=== PATIENT | male | born 1970 | race Hispanic/Latino ===

== ENCOUNTER → 2024-10-15 | Emergency (ER) | payer OTHER | END | disposition home or self-care (01) | LOC: ER 16:50 | DX: S03.02XA Dislocation of jaw, left side, initial encounter (principal) | CPT/HCPCS: 70110; 99283 ==

== ENCOUNTER → 2024-10-15 | Day surgery (SDC) | payer OTHER ==
[~2024-10-15] MED LIST: FENTANYL CITRATE/PF 100MCG/2 ML INJ ONE; GLYCOPYRROLATE INJ 0.2 MG/ML VIAL ONE; HYOSCYAMINE SULFATE 0.5 MG/ML INJ ONE; LIDOCAINE HCL 2% LOCAL INJ 5 ML SDV VIAL INJ ONE; METOCLOPRAMIDE HCL 10 MG/2ML VIAL ONE; PROPOFOL IV EMULSION 10 MG/ML 20 ML VIAL ONE; PROPOFOL IV EMULSION 50 ML IV ONE
[2024-10-15 15:28] VITALS: TEMP 97.1
[2024-10-15] MEDS: MEPERIDINE HCL INJ 25 MG/ML VIAL ONE (16:30)
[2024-10-15] MEDS: FENTANYL CITRATE/PF 100MCG/2 ML INJ ONE (16:44)
[2024-10-15 17:55] VITALS: BP 152/98; PULSE 87; RESP 18; O2SAT 97
== END ==
LOC: OR 13:27
PROVIDERS: ATTEND Internal Medicine Gastroenterology
DX: S03.02XA Dislocation of jaw, left side, initial encounter (principal)
CPT/HCPCS: 21480; 70110; 93005; 99283; J1980; J2003; J2175; J2470; J2704 ×2; J2765; J3010; 43239; 45378; 45385